=== PATIENT | female | born 1930 | race Caucasian/White ===

== ENCOUNTER 2017-06-08 07:02 | Inpatient (IN) ==
[2017-06-08] MEDS ORDERED: ZOFRAN IV ONE (07:05)
[2017-06-08] MEDS ORDERED: NS 1,000 ML IV ONE (07:05)
[2017-06-08] MEDS ORDERED: ZOSYN 4.5 GM in NS 100 ML IV SCH (07:45)
[2017-06-08 08:09] LABS: MANUAL DIFF NEEDED? NO
[2017-06-08 08:16] LABS: BASO% 0.5 % (0.0-0.8); EOS# 0.05 X1000 (0.0-0.7); EOS% 0.8 % (0.0-10.0); HEMATOCRIT 31.4 % (37.0-47.0); HEMOGLOBIN 10.2 g/dL (12.0-16.0); LYMPH# 0.98 X1000 (1.2-3.4); LYMPH% 16.6 % (20.5-51.1); MCH 29.6 PG (27-31); MCHC 32.5 g/dL (33-37); MONO# 0.81 X1000 (0.11-0.59); MONO% 13.7 % (1.7-9.3); MPV 11.3 FL (7.4-10.4); NEUT% 68.4 % (42.2-75.2); PLT 207 X1000 (130-400); RBC 3.45 XMIL (4.2-5.4)
[2017-06-08] MEDS ORDERED: TYLENOL PO PRN ×2 (08:19→08:41)
[2017-06-08] MEDS ORDERED: VENTOLIN HFA INH PRN ×3 (08:19→08:43)
[2017-06-08] MEDS ORDERED: LOVENOX SUBQ SCH (08:19)
[2017-06-08 08:30] LABS: AGAP 10; ALBUMIN 3.8 g/dL (3.5-5.0); ALKALINE PHOSPHATASE 61 U/L (32-104); AMYLASE 60 U/L (20-200); BUN 20 mg/dL (8-22); CALCIUM 9.8 mg/dL (8.8-10.2); CHLORIDE 94 mmol/L (98-107); COSMO 269; DIRECT BILIRUBIN < 0.20 mg/dL (0.00-0.20); GOT 22 U/L (10-30); GPT 12 U/L (10-36); LIPASE 38 U/L (13-60); POTASSIUM 3.7 mmol/L (3.5-5.1); SODIUM 133 mmol/L (136-145); TCO2 29 mmol/L (25-35); TOTAL PROTEIN 7.1 g/dL (6.3-8.3)
[2017-06-08] MEDS ORDERED: DIOVAN PO SCH (09:00)
[2017-06-08] MEDS: ZOFRAN IV PRN (10:20)
[2017-06-08] MEDS: ZOSYN 2.25 GM in NS 50 ML IV SCH ×2 (11:49→17:47)
[2017-06-08] MEDS: DIOVAN PO SCH (11:50)
[2017-06-08] MEDS: PROTONIX PO SCH ×2 (11:50→21:43)
[2017-06-08] MEDS: LOVENOX SUBQ SCH (11:50)
[2017-06-08] MEDS: SINGULAIR PO SCH (11:50)
[2017-06-08] MEDS: NS 1,000 ML IV SCH (14:30)
[2017-06-08] MEDS: ADVAIR 250/50 DISKUS INH SCH (19:43)
[2017-06-08] MEDS: DESYREL PO SCH (21:43)
[2017-06-09] MEDS: ZOSYN 2.25 GM in NS 50 ML IV SCH ×5 (03:02→20:48)
[2017-06-09] MEDS: NS 1,000 ML IV SCH ×4 (03:02→18:49)
[2017-06-09 06:28] LABS: CALCIUM 8.4 mg/dL (8.8-10.2); POTASSIUM 3.8 mmol/L (3.5-5.1)
--- NOTE | 2017-06-09 07:16 | Diag Imaging Result Doc PS360 ---
EXAM: CHEST-PORTABLE HISTORY: HTN TECHNIQUE: Erect AP portable at 0530 COMMENT: There is some improvement in the platelike atelectasis over the left base compared to the previous study of 05/29/2016. Otherwise the appearance of the chest has not changed significantly. There is a skin fold over the right upper chest simulating a pneumothorax. There is no pneumothorax. IMPRESSION: No evidence of acute disease. Electronically signed by Bernardino Silverio 06/09/2017 7:14 AM
[2017-06-09] MEDS: ADVAIR 250/50 DISKUS INH SCH ×2 (08:02→19:25)
[2017-06-09 10:07] LABS: CALCIUM 8.5 mg/dL (8.8-10.2); POTASSIUM 3.6 mmol/L (3.5-5.1)
[2017-06-09] MEDS: SINGULAIR PO SCH (10:11)
[2017-06-09] MEDS: PROTONIX PO SCH ×2 (10:11→20:49)
[2017-06-09] MEDS: LOVENOX SUBQ SCH (10:12)
[2017-06-09] MEDS: DIOVAN PO SCH (10:12)
[2017-06-09] MEDS: DESYREL PO SCH ×2 (20:48→20:51)
[2017-06-10] MEDS: NS 1,000 ML IV SCH ×2 (03:12→08:51)
[2017-06-10] MEDS: ZOSYN 2.25 GM in NS 50 ML IV SCH ×4 (03:12→20:02)
[2017-06-10] MEDS: ADVAIR 250/50 DISKUS INH SCH ×2 (07:51→19:24)
[2017-06-10] MEDS ORDERED: PHENERGAN IV PRN (08:33)
[2017-06-10] MEDS ORDERED: SODIUM CHLORIDE 0.9% INJ PRN (08:33)
[2017-06-10] MEDS: PROTONIX PO SCH ×2 (08:38→20:02)
[2017-06-10] MEDS: SINGULAIR PO SCH (08:38)
[2017-06-10] MEDS: DIOVAN PO SCH (08:38)
[2017-06-10] MEDS: LOVENOX SUBQ SCH (08:39)
--- NOTE | 2017-06-10 09:28 | Diag Imaging Result Doc PS360 ---
CT ABDOMEN/PELVIS W/O CONTRAST - 06/10/2017 INDICATION: Abdominal pain/ intractable diarrhea TECHNIQUE: A CT dose reduction protocol was used. COMPARISON: 05/29/2016 FINDINGS: There is a large hiatal hernia stable from prior. There is some multifocal linear atelectasis in the lung bases. Trace left pleural effusion. Stable small cyst in the liver. Stable cholecystectomy changes. There are numerous renal cysts. The largest cyst at the lower pole of the right kidney has enlarged somewhat since prior. This now measures about 8 x 5 cm. No radiodense renal stones. No hydronephrosis or hydroureter. Stable extensive vascular disease of the aorta and its branches without aneurysm formation. Stable small fat-containing ventral hernia to the right of the umbilicus. There is some soft tissue gas at the anterior left pelvic body wall. Correlate for injection sites. The small bowel demonstrates a lot of air-fluid levels. The colon is also filled with liquid stool and some small air-fluid levels. No abnormal bowel dilation. Stable extensive diverticulosis of the distal colon. There are also a couple of diverticula of the distal small bowel. Urinary bladder, uterus, and rectum are normal. There are moderate degenerative changes of the spine. No acute or suspicious bony lesion. IMPRESSION: 1. The small bowel and colon is filled with liquid stool consistent with diarrhea. The cause is not clear. 2. Diverticulosis of the small and large bowel. 3. Soft tissue gas at the anterior left pelvic body wall. Correlate with injection sites. 4. Other incidental findings described above. Electronically signed by Blue Polk 06/10/2017 9:26 AM
[2017-06-11] MEDS: ZOSYN 2.25 GM in NS 50 ML IV SCH (04:06)
[2017-06-11 06:10] LABS: MANUAL DIFF NEEDED? NO
[2017-06-11 06:21] LABS: BASO% 0.7 % (0.0-0.8); EOS# 0.13 X1000 (0.0-0.7); EOS% 2.8 % (0.0-10.0); HEMOGLOBIN 8.8 g/dL (12.0-16.0); LYMPH# 1.03 X1000 (1.2-3.4); LYMPH% 22.4 % (20.5-51.1); MCH 29.2 PG (27-31); MCHC 32.6 g/dL (33-37); MCV 89.7 FL (81-99); MPV 11.3 FL (7.4-10.4); NEUT% 61.1 % (42.2-75.2); PLT 150 X1000 (130-400); RBC 3.01 XMIL (4.2-5.4)
[2017-06-11 06:41] LABS: CALCIUM 7.8 mg/dL (8.8-10.2); POTASSIUM 3.7 mmol/L (3.5-5.1); TOTAL BILIRUBIN 0.36 mg/dL (0.20-1.00); TOTAL PROTEIN 5.4 g/dL (6.3-8.3)
[2017-06-11] MEDS: DESYREL PO SCH ×3 (06:54→21:56)
[2017-06-11] MEDS: LOVENOX SUBQ SCH (08:46)
[2017-06-11] MEDS: SINGULAIR PO SCH (08:47)
[2017-06-11] MEDS: PROTONIX PO SCH ×2 (08:47→21:55)
[2017-06-11] MEDS: DIOVAN PO SCH (08:47)
[2017-06-11] MEDS: ADVAIR 250/50 DISKUS INH SCH ×2 (08:50→19:24)
[2017-06-12] MEDS: ADVAIR 250/50 DISKUS INH SCH ×2 (07:30→19:20)
[2017-06-12] MEDS: LOVENOX SUBQ SCH (13:46)
[2017-06-12] MEDS: SINGULAIR PO SCH (13:46)
[2017-06-12] MEDS: DIOVAN PO SCH (13:46)
[2017-06-12] MEDS: PROTONIX PO SCH ×2 (13:46→20:31)
--- NOTE | 2017-06-12 14:12 | Diag Imaging Result Doc PS360 ---
ABDOMEN FLAT/UPRIGHT - 06/12/2017 INDICATION: Abdominal pain/ diarrhea TECHNIQUE: Two views COMPARISON: 05/26/2016 FINDINGS: Stable surgical clips in the right upper quadrant and right side of the pelvis. There is a nonobstructive bowel gas pattern. No free air or abdominal calcifications. IMPRESSION: No acute disease. Electronically signed by Blue Polk 06/12/2017 2:10 PM
[2017-06-12] MEDS: ZOFRAN IV PRN (19:01)
[2017-06-12] MEDS: DESYREL PO PRN (20:36)
[2017-06-13] MEDS: ADVAIR 250/50 DISKUS INH SCH ×2 (07:30→19:22)
[2017-06-13] MEDS ORDERED: DIPRIVAN 1% ONE (10:06)
[2017-06-13] MEDS: SINGULAIR PO SCH (16:44)
[2017-06-13] MEDS: PROTONIX PO SCH ×2 (16:44→21:04)
[2017-06-13] MEDS: LOVENOX SUBQ SCH (16:44)
[2017-06-13] MEDS: DIOVAN PO SCH (16:44)
[2017-06-13] MEDS: NS 1,000 ML IV SCH ×2 (18:39→21:05)
[2017-06-13] MEDS ORDERED: KLONOPIN PO SCH (21:00)
[2017-06-13] MEDS: PERIDEX MT SCH (21:05)
[2017-06-13] MEDS: DESYREL PO PRN (21:06)
[2017-06-14 05:52] LABS: MANUAL DIFF NEEDED? NO
[2017-06-14 06:02] LABS: BASO% 0.6 % (0.0-0.8); EOS# 0.01 X1000 (0.0-0.7); EOS% 0.2 % (0.0-10.0); HEMATOCRIT 25.6 % (37.0-47.0); HEMOGLOBIN 8.3 g/dL (12.0-16.0); LYMPH# 0.88 X1000 (1.2-3.4); LYMPH% 16.9 % (20.5-51.1); MCH 28.9 PG (27-31); MCHC 32.4 g/dL (33-37); MCV 89.2 FL (81-99); MONO# 0.76 X1000 (0.11-0.59); MONO% 14.6 % (1.7-9.3); MPV 11.6 FL (7.4-10.4); NEUT% 67.7 % (42.2-75.2); PLT 146 X1000 (130-400); RBC 2.87 XMIL (4.2-5.4)
[2017-06-14 06:15] LABS: ALBUMIN 2.7 g/dL (3.5-5.0); CALCIUM 7.9 mg/dL (8.8-10.2); POTASSIUM 2.7 mmol/L (3.5-5.1); TOTAL BILIRUBIN 0.44 mg/dL (0.20-1.00); TOTAL PROTEIN 5.5 g/dL (6.3-8.3)
[2017-06-14] MEDS: ADVAIR 250/50 DISKUS INH SCH (07:44)
[2017-06-14 09:20] VITALS: BP 134/87
[2017-06-14] MEDS: PROTONIX PO SCH (09:47)
[2017-06-14] MEDS: SINGULAIR PO SCH (09:47)
[2017-06-14] MEDS: DIOVAN PO SCH (09:48)
[2017-06-14] MEDS: LOVENOX SUBQ SCH (09:48)
[2017-06-14] MEDS: PERIDEX MT SCH (09:49)
[2017-06-15] MEDS ORDERED: KLOR-CON PO SCH (09:00)
== END 2017-06-14 12:07 | disposition home or self-care (01) ==
LOC: ED 07:02 → 4N 08:07
PROVIDERS: ADMIT Internal Medicine; ATTEND Internal Medicine

== ENCOUNTER 2019-11-11 10:17 | Inpatient (IN) ==
[2019-11-11 11:07] LABS: BASO# 0.02 X1000 (0.0-0.2); BASO% 0.2 % (0.0-0.8); EOS# 0.18 X1000 (0.0-0.7); EOS% 2.2 % (0.0-10.0); HEMATOCRIT 31.3 % (37.0-47.0); HEMOGLOBIN 9.8 g/dL (12.0-16.0); LYMPH# 1.01 X1000 (1.2-3.4); LYMPH% 12.4 % (20.5-51.1); MCH 28.4 PG (27-31); MCHC 31.3 g/dL (33-37); MCV 90.7 FL (81-99); MONO# 0.83 X1000 (0.11-0.59); MONO% 10.2 % (1.7-9.3); MPV 10.8 FL (7.4-10.4); NEUT# 6.08 X1000 (1.4-6.5); PLT 223 X1000 (130-400); RBC 3.45 XMIL (4.2-5.4); RDW 13.8 % (11.5-14.5); WBC 8.12 X1000 (4.8-10.8)
[2019-11-11 11:29] LABS: ALB/GLOB RATIO 0.9; ALBUMIN 3.2 g/dL (3.5-5.0); CALCIUM 9.3 mg/dL (8.8-10.2); CREATININE 1.7 mg/dL (0.5-0.9); POTASSIUM 3.8 mmol/L (3.5-5.1); TOTAL BILIRUBIN 0.84 mg/dL (0.20-1.00); TOTAL PROTEIN 6.9 g/dL (6.3-8.3)
--- NOTE | 2019-11-11 12:41 | EKG Report ---
Test Performed on : 11/11/2019 10:46:44 AM Test Reason : CP Blood Pressure : / mmHG Vent. Rate : 083 BPM Atrial Rate : 083 BPM P-R Int : 168 ms QRS Dur : 136 ms QT Int : 382 ms P-R-T Axes : 042 -53 093 degrees QTc Int : 448 ms Normal sinus rhythm. Left axis deviation Left ventricular hypertrophy with QRS widening and repolarization abnormality Cannot rule out Septal infarct (cited on or before 17-APR-2018) Abnormal ECG When compared with ECG of 22-APR-2018 16:14, premature ventricular complexes. are no longer present premature supraventricular complexes. are no longer present Unconfirmed Result
[2019-11-11] MEDS ORDERED: MORPHINE IV ONE (14:31)
[2019-11-11] MEDS ORDERED: NS 1,000 ML IV ONE ×3 (14:31→15:37)
[2019-11-11] MEDS ORDERED: ZOFRAN IV ONE (14:31)
[2019-11-11 15:11] LABS: BILIRUBIN URINE NEGATIVE (NEGATIVE); BLOOD URINE NEGATIVE (NEGATIVE); COLOR YELLOW; GLUCOSE URINE NEGATIVE (NEGATIVE); KETONE URINE NEGATIVE (NEGATIVE); LEUKOCYTES URINE NEGATIVE (NEGATIVE); NITRITE URINE NEGATIVE (NEGATIVE); PH URINE 6.5; PROTEIN URINE NEGATIVE (NEGATIVE); SP GRAVITY URINE 1.012; TURBIDITY URINE CLEAR (CLEAR); URINE SOURCE CLEAN CATCH; UROBILINOGEN URINE NORMAL (NORMAL)
[2019-11-11 15:13] LABS: UR EPITHELIAL CELLS <10 /HPF (<10); URINE BACTERIA NEGATIVE /HPF; URINE RBC <10 /HPF (<10); URINE WBC <10 /HPF (<10)
[2019-11-11] MEDS ORDERED: TYLENOL PO PRN ×2 (15:37→18:47)
[2019-11-11] MEDS ORDERED: ZOFRAN IV PRN (15:37)
--- NOTE | 2019-11-11 16:40 | Diag Imaging Result Doc PS360 ---
EXAM: CHEST-PORTABLE HISTORY: ABD PAIN TECHNIQUE: Single view COMPARISON: 04/22/2018 FINDINGS: The lungs are well expanded. The heart is not enlarged. The vessels are not distended. There are no infiltrates. No effusion identified. There is a small to moderate-sized hiatal hernia. IMPRESSION: Negative exam. Electronically signed by Hugo Le 11/11/2019 4:38 PM
[2019-11-11] MEDS ORDERED: VENTOLIN HFA INH PRN (17:40)
[2019-11-11] MEDS ORDERED: DESYREL PO PRN (18:48)
[2019-11-11] MEDS ORDERED: TUSSIONEX LIQUID PO PRN (18:51)
[2019-11-11] MEDS: PRILOSEC PO SCH (20:46)
[2019-11-11] MEDS: ADVAIR 250/50 DISKUS INH SCH (21:07)
[2019-11-11] MEDS: VENTOLIN HFA INH PRN (21:08)
--- NOTE | 2019-11-11 21:23 | EKG Report ---
Test Performed on : 11/11/2019 6:13:58 PM Test Reason : elevated heart rate Blood Pressure : / mmHG Vent. Rate : 116 BPM Atrial Rate : 117 BPM P-R Int : 150 ms QRS Dur : 128 ms QT Int : 342 ms P-R-T Axes : 037 -58 106 degrees QTc Int : 475 ms Sinus tachycardia. with occasional premature ventricular complexes. Left axis deviation Left ventricular hypertrophy with QRS widening and repolarization abnormality Cannot rule out Septal infarct , age undetermined Abnormal ECG Confirmed by Abrahan Escobar MD ([id number]) on 11/12/2019 4:35:28 PM
--- NOTE | 2019-11-11 22:19 | HISTORY AND PHYSICAL ---
PRIMARY CARE PHYSICIAN: Dr. Banrey Subramanian. CHIEF COMPLAINT: Intractable abdominal pain. HISTORY OF PRESENT ILLNESS: An 89-year-old, white female with a very complicated past medical history who presents for evaluation of above-mentioned symptoms. Pertinent history of present illness began approximately 2 weeks ago. At that time, patient states she began feeling poorly. She was, however, able to continue her daily activities. On Friday evening, the patient developed acute onset nausea, vomiting, and epigastric pain. The pain lasted into the day Friday. She denied fevers, chills, or diarrhea. Because of significant dehydration and persistent symptoms, the patient was seen in the emergency department for further evaluation and management. Laboratory data returned essentially within normal limits. CT scan revealed no evidence of acute disease. The patient was discharged home after receiving IV fluids. On Friday, the patient had an episode of diarrhea, but overall states she felt improved from the day prior. This morning at approximately 6 a.m., the patient awoke and drank a cup of coffee and a cup of orange juice. At approximately 8:30, the patient developed intractable abdominal pain. She described the pain as 10/10. She had associated nausea, but no vomiting. The patient contacted her daughter secondary to the intractable pain. The patient was brought to the emergency department for further evaluation and management. The pain ultimately improved with time. Her episode lasted approximately 2 to 3 hours. Laboratory data was evaluated in the emergency department. Alkaline phosphatase and AST were noted to be significantly increased from Friday. In the setting of previous common bile duct stone on 2 separate occasions, patient will be admitted to the hospital for full evaluation and management. Of note, in 2015 and 2017, the patient developed symptomatic common bile duct stone. She was treated with ERCP intervention per Dr. Larsen. As described above, the patient describes current symptoms as very similar to her previous episodes. PAST MEDICAL HISTORY: 1. History of Bright's disease in 1963. 2. Chronic anemia. 3. History of appendectomy in 1961. 4. Asthma. 5. Choledocholithiasis status post ERCP in 2015 and 2017. 6. Cholelithiasis status post open cholecystectomy in the . 7. Congestive heart failure, diagnosed in 2018 with a systolic ejection fraction of 15 to 20 percent, followed. 8. Chronic cough secondary to asthma versus reflux versus congestive heart failure. 9. History of diverticulitis treated successfully with antibiotic intervention. 10. Reflux disease. 11. History of a hiatal hernia. 12. Hypertension. 13. Iron deficiency. 14. Osteoporosis. 15. History of an ovarian cyst rupture in 1962 status post right oophorectomy. 16. History of colonic polyps. 17. 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 In April 2018 and a renal mass was identified. Serial CT scan evaluations have been performed by Dr. Babin, but no intervention has been pursued. 18. Pulmonary nodules. Diagnosed in 2016. 19. History of nephrolithiasis. 20. Vitamin B12 deficiency. CURRENT MEDICATIONS: 1. Advair 250/50 one puff twice daily. 2. Vitamin B12 1000 mcg IM monthly. 3. Lasix 80 mg daily. 4. Metoprolol ER 25 mg daily. 5. Omeprazole 40 mg daily. 6. Potassium chloride 8 mEq daily. 7. ProAir HFA 1 to 2 puffs every 4 to 6 hours as needed. 8. Singulair 10 mg daily as needed. 9. Tussionex as needed. ALLERGIES: Patient states she is allergic to Demerol, which causes shortness of breath; iron, which causes nausea and vomiting; and Protonix, which causes dizziness. SOCIAL HISTORY: The patient averaged 3 cigarettes per day for 20 years. She stopped in 1974. She occasionally uses alcohol. She denies illicit drug use. She is a retired nurse. She enjoys [employer], [employer], and [employer]. She is unable to exercise routinely. FAMILY HISTORY: Patient's father passed at age 76 secondary to complications of a stroke. He had a history of laryngeal cancer. Patient's mother passed at age 97 secondary to "old age." REVIEW OF SYSTEMS: A 12 point review of systems was performed. Pertinent positives and negatives are noted history present illness. PHYSICAL EXAMINATION: VITAL SIGNS: Temperature 98.3 degrees, heart rate 50, respirations 18, blood pressure 123/80. GENERAL: Elderly. No acute distress. HEENT: Normocephalic, atraumatic. Pupils equal, round, reactive to light. Extraocular muscles intact. Sclerae anicteric. Clute conjunctivae. Oral and nasopharynx clear without exudate. NECK: Supple. No lymphadenopathy. No thyromegaly. No bruits auscultated. CARDIOVASCULAR: Regular rate and rhythm. No significant murmurs, rubs, or gallops. PULMONARY: Clear to auscultation bilaterally. ABDOMEN: Soft, tenderness in the epigastric region with guarding, but no rebound. Positive bowel sounds. EXTREMITIES: Moves all extremities well. No significant clubbing, cyanosis, or edema. NEUROLOGIC: Cranial nerves 2-12 grossly intact. Motor and sensory grossly intact. PSYCHOLOGIC EXAMINATION: Is appropriate. LABORATORY DATA: White blood cell count 8.12, hemoglobin 9.8, hematocrit 31.3, platelet count 223,000. Sodium 138, potassium 3.8, chloride 100, bicarb 26, BUN 23, creatinine 1.7, glucose 96, calcium 9.3, total bilirubin 0.84, total protein 6.9, albumin 3.2, alkaline phosphatase 244, AST 56, ALT 23, proBNP 1521, amylase 50, lipase 39, urinalysis returned negative. Chest x-ray revealed a negative examination. ASSESSMENT AND PLAN: An 89-year-old, white female with a complicated past medical history, presents for evaluation of intractable abdominal pain. With a history of 2 episodes of common bile duct stone requiring endoscopic retrograde cholangiopancreatography intervention, elevated alkaline phosphatase, and elevated liver enzymes, I am most concerned this represents a recurrence. The patient will be admitted to the hospital for full evaluation and management of this condition. 1. Admit to General Medicine. 2. Intractable abdominal pain - As above, highest on the differential is that of an obstructing common bile duct stone. Patient has had 2 previous episodes as described above. I have discussed case with Dr. Edmonds. We will place patient NPO. We will plan endoscopic retrograde cholangiopancreatography intervention tomorrow. Further plans will be made depending on the endoscopic retrograde cholangiopancreatography findings. We will continue routine omeprazole therapy. We will encourage aspiration precautions. 3. Intractable nausea and vomiting - This is likely secondary to her acute illness. We will treat the patient with as-needed antiemetic agents. We will follow this. 4. Systolic congestive heart failure - This certainly compounds her current condition. We will continue her optimized medical management. We will monitor her volume status very closely. 5. Chronic kidney disease - Patient's creatinine is slightly elevated, but approximately her baseline. We will remain aware. We will continue her optimized medical regimen. 6. Anemia - Patient has longstanding disease. Hemoglobin and hematocrit are 9.8 in 31.3. We will remain aware. 7. Bronchospasm/cough - We will continue patient on Advair and as needed albuterol. We will encourage aspiration precautions. 8. Reflux disease with associated hiatal hernia - We will continue patient on omeprazole therapy. 9. Hypertension - We will continue patient's home medications. 10. Fluid, electrolytes, nutrition. We will monitor electrolytes. Saline lock IV. NPO after midnight. 11. Prophylaxis. The patient will be placed on sequential compression devices. cc: Barney Subramanian MD
[2019-11-11] MEDS: TOPROL XL PO SCH (23:05)
[2019-11-12 05:21] LABS: BASO# 0.02 X1000 (0.0-0.2); BASO% 0.3 % (0.0-0.8); EOS# 0.17 X1000 (0.0-0.7); EOS% 2.5 % (0.0-10.0); HEMATOCRIT 28.3 % (37.0-47.0); HEMOGLOBIN 8.7 g/dL (12.0-16.0); IMM GRAN# 0.02 X1000 (0.0-0.04); IMM GRAN% 0.3 % (0.0-0.5); LYMPH# 0.84 X1000 (1.2-3.4); LYMPH% 12.6 % (20.5-51.1); MCHC 30.7 g/dL (33-37); MONO# 0.78 X1000 (0.11-0.59); MONO% 11.7 % (1.7-9.3); MPV 10.8 FL (7.4-10.4); NEUT# 4.86 X1000 (1.4-6.5); NEUT% 72.6 % (42.2-75.2); PLT 204 X1000 (130-400); RBC 3.11 XMIL (4.2-5.4); RDW 13.6 % (11.5-14.5); WBC 6.69 X1000 (4.8-10.8)
[2019-11-12 05:32] LABS: INR 1.16
[2019-11-12 05:33] LABS: PTT 40.3 Seconds (22.3-41.8)
[2019-11-12 05:44] LABS: ALB/GLOB RATIO 0.9; ALBUMIN 2.9 g/dL (3.5-5.0); CALCIUM 8.8 mg/dL (8.8-10.2); CREATININE 1.6 mg/dL (0.5-0.9); POTASSIUM 3.6 mmol/L (3.5-5.1); TOTAL BILIRUBIN 1.01 mg/dL (0.20-1.00); TOTAL PROTEIN 6.1 g/dL (6.3-8.3)
[2019-11-12] MEDS: PRILOSEC PO SCH (06:07)
[2019-11-12] MEDS: KLOR-CON PO SCH (08:10)
[2019-11-12] MEDS: SINGULAIR PO SCH (08:10)
[2019-11-12] MEDS: LASIX PO SCH (08:10)
[2019-11-12] MEDS: TOPROL XL PO SCH (08:10)
[2019-11-12] MEDS: COZAAR PO SCH (08:10)
[2019-11-12] MEDS ORDERED: DIPRIVAN 1% 500 MG/50 ML BOTTLE ONE (10:57)
[2019-11-12] MEDS ORDERED: KETAMINE ONE (10:59)
[2019-11-12] MEDS ORDERED: XYLOCAINE-MPF 2% ONE (11:14)
[2019-11-12] MEDS ORDERED: VERSED ONE (11:16)
--- NOTE | 2019-11-12 11:50 | ENDOSCOPY OPERATIVE NOTE ---
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 PROCEDURE PERFORMED: ERCP with removal of calculus/calculi MEDICATIONS: Per Anesthesia CONSENT: The patient understands the risks and benefits of the procedure and understands that these r isks include, but are not limited to: sedation, allergic reaction, infection, perforation and/or bleeding. Alternative means of evaluation and treatment include, among others: physical exam, x-rays, and/or surgical intervention. The patient elects to proceed with this endoscopic procedure. HISTORY AND PHYSICAL: 11/12/2019 DESCRIPTION OF PROCEDURE: During intra-op preparation period all mechanical and medical equipment was checked for proper function. Hand hygiene and appropriate measures for infection prevention was taken. After the risks, benefits and alternatives of the procedure were thoroughly explained, Informed was verified, confirmed and timeout was successfully executed by the treatment team. With the patient in left semi-prone position, medications were admini stered intravenously.The [id number] ([id number]) was passed from the mouth into the esophagus and further advanc ed from the esophagus into the stomach. From stomach scope was directed to the second portion of the duodenum. M ajor papilla was aligned with the duodenoscope. The scope position was confirmed fluoroscopically. Rest of the finding s/therapeutics are given below. The scope was then completely withdrawn from the patient and the procedure completed. Th e pulse, BP, and O2 saturation were monitored and documented by the physician and the nursing staff throughout the ent arden procedure. The patient was cared for as planned according to standard protocol. The patient was then discharged to [facility] in stable condition and with appropriate post procedure care. ERCP: A machine biller film prior to endoscope insertion appeared normal. The Major Papilla was located in t he second portion of the duodenum. There was evidence of prior sphincterotomy. Bile duct cannulation was attempted u sing the cannulatome with guidewire. Cannulation of the bile duct was performed with ease. Deep cannulation was successfully achieved. A cholangiogram releaved there was a dilation of the CBD. There was a genu or very phil p turn in the mid CBD, baloon traverses the CBD easily. A stone extraction was attempted using a stone extraction bal loon. The bile duct was swept three times. Sludge was removed from the bile duct. ADVERSE EVENT: There were no complications. IMPRESSIONS: RECOMMENDATIONS: 1. Start Nikolai 2. Repeat liver function test in 1 day(s) 3. Disposition 4. Return to floor when standard parameters are met 5. Resume regular diet REPEAT EXAM: Han Edmonds MD eSigned: Han Edmonds MD 11/12/2019 11:49 AM cc: Barney Subramanian MD PATIENT NAME: Jane Adan MR#: [id number]
--- NOTE | 2019-11-12 11:56 | Diag Imaging Result Doc PS360 ---
EXAM: ERCP-BILIARY AND PANCREATIC 11/12/2019 HISTORY: abd pain, hx CBD stones TECHNIQUE: One image, 48.7 mGy, 5.7 minutes fluoroscopy time. COMMENT: There is biliary dilatation including the intrahepatic ducts. A balloon was apparently passed into the right hepatic duct. No contrast is seen in the duodenum. The possibility of filling defects in the common bile duct and obstruction of the distal common bile duct cannot be excluded on this one image. IMPRESSION: Biliary dilatation. Electronically signed by Bernardino Silverio 11/12/2019 11:54 AM
[2019-11-12] MEDS: DILAUDID ONE ×2 (12:18→12:30)
[2019-11-12] MEDS: MORPHINE IV PRN ×2 (14:31→14:57)
[2019-11-12] MEDS ORDERED: SODIUM CHLORIDE 0.9% INJ PRN (14:37)
[2019-11-12] MEDS ORDERED: PHENERGAN IV PRN (14:37)
[2019-11-12] MEDS ORDERED: D5 NS 1,000 ML IV SCH ×2 (15:00→19:03)
--- NOTE | 2019-11-12 15:16 | Diag Imaging Result Doc PS360 ---
EXAM: KUB ABDOMEN 11/12/2019 HISTORY: abd pain TECHNIQUE: KUB COMMENT: The patient is rotated to the left. There is some residual contrast in a dilated common hepatic and common bile duct. No visualized contrast is present in the bowel. There is no evidence of bowel obstruction organomegaly or mass otherwise. IMPRESSION: Retained contrast medium in the biliary tract. Electronically signed by Bernardino Silverio 11/12/2019 3:13 PM
[2019-11-12 15:33] LABS: AMYLASE 54 U/L (20-200); LIPASE 39 U/L (13-60)
[2019-11-12] MEDS: ADVAIR 250/50 DISKUS INH SCH ×2 (15:44→19:36)
--- NOTE | 2019-11-12 17:10 | GASTROENTEROLOGY CONSULTATION ---
DATE: 11/12/2019 REASON FOR CONSULTATION: Abdominal pain. HISTORY OF PRESENT ILLNESS: This is an 89-year-old female who reports onset of symptoms about 2 weeks ago. At that time she had developed abdominal pain, nausea, vomiting. It lasted for several days. She had denied fever or chills. It improved but then returned several days later. She had episode of diarrhea related. No reported fever or chills. She had episodes of nausea at that time. She came into the emergency room for evaluation. She was found to have elevated alkaline phosphatase and mildly elevated AST. She has a history of common bile duct stones and has had [address] Larsen in 2016 and 2018. Currently patient states her abdominal pain has improved. She did have some shortness of breath on admission, but that has improved also. She has O2 by nasal cannula and no reported nausea or vomiting today. She has been held n.p.o. for possible ERCP. PAST MEDICAL HISTORY: History of Bright's disease 1962. Chronic anemia. Asthma. Congestive heart failure. History of diverticulitis. GERD. Hypertension Osteoporosis. PAST SURGICAL HISTORY: Appendectomy. Cholecystectomy. 2 different ERCPs in 2015 and 2018. Colon resection. Right oophorectomy related to an ovarian cyst rupture. Left nephrectomy. ALLERGIES: Demerol causing decreased respirations. HOME MEDICATIONS: 1. Tylenol 650 mg every 4 hours as needed. 2. Albuterol 8.5 g as needed. 3. Xanax 0.25 every 6 hours as needed. 4. Lasix 40 mg every other day. 5. Losartan 25 mg daily. 6. Metoprolol 25 mg daily. 7. Singulair 10 mg daily/ 8. Omeprazole 40 mg daily. 9. Zofran 4 mg every 6 hours as needed. 10. Potassium 8 mEq every other day. 11. Trazodone 50 mg at night as needed. SOCIAL HISTORY: She stopped smoking in the 1970s. Occasional alcohol use. She is a retired nurse. REVIEW OF SYSTEMS: Per history of present illness. PHYSICAL EXAMINATION: Vital Signs: Temperature 98.2 degrees, pulse 70 respirations 18, blood pressure 125/65. General: Patient is awake and alert. No acute distress. HEENT: Normocephalic, atraumatic. Pupils equal, round, reactive to light. Sclerae nonicteric. Respiratory: Lung sounds clear bilaterally. She does have O2 by nasal cannula in place. Cardiovascular: Regular rate and rhythm. Abdomen: Soft at present time. She states she has nontender, abdominal pain has improved some. Positive bowel sounds. Extremities: No lower extremity edema noted. Neurological: Cranial nerves 2-12 grossly intact. Patient is awake and alert, oriented to person, place, and time. DIAGNOSTIC RESULTS: Laboratory: Hematology: WBC 6.69, hemoglobin 8.7, hematocrit 28.3, MCV 91.0 platelet 204,000. Coagulation: ProTime 15.0 INR 1.16 PTT 40.3. Chemistry: Sodium 138, potassium 3.6, chloride 100, CO2 29, BUN 19, creatinine 1.6 glucose 95, calcium 8.8, total bilirubin 1.01. AST 35, ALT 26, alkaline phosphatase 213. Amylase and lipase were normal. Abdominal pelvis CT scan showed a moderately large sliding type hiatal hernia. Mild cardiomegaly. Small fat containing ventral hernia. Severe diverticulosis. ASSESSMENT AND PLAN: 1. Abdominal pain. 2. Nausea, vomiting. 3. Elevated alkaline phosphatase mildly elevated AST. 4. History of choledocholithiasis status post endoscopic retrograde cholangiopancreatography in 2016 and 2018. 5. Anemia. PLAN: Continue symptomatic treatment and supportive care. The patient has had common bile duct stones with ERCPs in [address] Larsen. I will proceed with repeat ERCP for further evaluation. I have discussed the procedure along with benefits and risks with the patient. She wishes to proceed along with her family. Further plans to be made according to findings. I have discussed this case with Dr. Edmonds. ERCP will be scheduled for today. The patient continues to be NPO. Thank you for this consultation. Dictated by OCTAVIANO Jones for Han Edmonds MD cc: OCTAVIANO Barger MD Scott A. Matthews, MD
--- NOTE | 2019-11-12 21:04 | PROGRESS NOTE ---
DATE: 11/12/2019 SUBJECTIVE: Upon my arrival this morning, the patient states she rested reasonably well. The patient was taken for ERCP this morning. Per report, bile duct cannulation was performed with ease. Deep cannulation was successfully achieved. Cholangiogram revealed there was dilation of the common bile duct. There was a genu or very sharp turn in the mid CBD, balloon transverses the CBD easily. Sludge was removed from the bile duct. Upon return to her room, the patient was noted to have significant pain in the epigastric and right upper quadrant. This was associated with nausea and vomiting. Ultimately, the patient achieved improvement with morphine and Phenergan therapy. This evening, the patient is resting in bed. She is easily arousable. There has been no evidence of fevers, chills, shortness of breath, or chest discomfort. OBJECTIVE: T-max 100.1 degrees, heart rate 67 to 84, respirations 14 to 20, blood pressure 104 to 162/49 to 73. General: Elderly, in no acute distress. Cardiovascular: Regular rate and rhythm. No significant murmurs, rubs, or gallops. Pulmonary: Clear to auscultation bilaterally. Abdomen: Soft, tenderness in the epigastric region. Positive bowel sounds. Extremities: Moves all extremities well. No significant clubbing, cyanosis, or edema. Dermatologic: Evaluation reveals no evidence of rash. LABORATORY DATA: White blood cell count 6.69, hemoglobin 8.7, hematocrit 28.3, platelet count is 204,000. PT 15.0, INR is 1.16, PTT is 40.3, sodium 138, potassium 3.6, chloride 100, bicarb 29, BUN 19, creatinine 1.6, glucose 95, calcium 8.8, total bilirubin 0.01, total protein 6.1, albumin 2.9, alkaline phosphatase 213. AST 35, ALT 26. Amylase 54, lipase 39. ASSESSMENT AND PLAN: 1. Intractable abdominal pain-The patient's alkaline phosphatase and transaminases were noted to be elevated yesterday. She had 2 previous episodes of stones obstructing the common bile duct. Dr. Edmonds was consulted. The patient was taken for ERCP as described above. Post- procedurely, the patient was noted to have excruciating pain with associated nausea and vomiting. I suspect this may have represented spasm after her procedure. We will follow serial pancreatic enzymes to rule out pancreatitis. Flat and upright x-ray suggested no evidence of free air. For now, we will continue supportive care. I anticipate the patient may have passed a stone prior to her ERCP. 2. Intractable nausea and vomiting-We will continue as-needed antibiotic intervention. 3. Systolic congestive heart failure-The patient was given D5 normal saline in the postprocedural time. We will decrease fluids down to 50 mL an hour. We will follow this. 4. Chronic kidney disease-The patient's creatinine is at baseline. We will recheck levels in the morning. 5. Anemia-The patient's hemoglobin and hematocrit are reasonably stable. We will follow this. 6. Bronchospasm/cough-We will continue Advair and as-needed albuterol. 7. Reflux disease with associated hiatal hernia-We will continue omeprazole therapy. 8. Hypertension-We will continue patient's home medications. 9. Disposition-At this point, the patient continues to require retirement care in a hospital setting. We will plan discharge home once appropriate. cc: Barney Subramanian MD
[2019-11-12] MEDS: ZOSYN 3.375 GM in NS 50 ML IV SCH (22:49)
[2019-11-13] MEDS: ZOSYN 3.375 GM in NS 50 ML IV SCH ×4 (04:07→21:54)
[2019-11-13 05:54] LABS: BASO# 0.02 X1000 (0.0-0.2); BASO% 0.1 % (0.0-0.8); EOS# 0.01 X1000 (0.0-0.7); HEMATOCRIT 31.9 % (37.0-47.0); HEMOGLOBIN 9.8 g/dL (12.0-16.0); IMM GRAN# 0.08 X1000 (0.0-0.04); IMM GRAN% 0.3 % (0.0-0.5); LYMPH# 0.54 X1000 (1.2-3.4); LYMPH% 2.2 % (20.5-51.1); MCH 28.1 PG (27-31); MCHC 30.7 g/dL (33-37); MCV 91.4 FL (81-99); MONO# 1.34 X1000 (0.11-0.59); MONO% 5.4 % (1.7-9.3); MPV 11.9 FL (7.4-10.4); NEUT# 22.71 X1000 (1.4-6.5); PLT 155 X1000 (130-400); RBC 3.49 XMIL (4.2-5.4); RDW 14.1 % (11.5-14.5)
[2019-11-13] MEDS: PRILOSEC PO SCH (06:10)
[2019-11-13 06:47] LABS: ALB/GLOB RATIO 0.7; ALBUMIN 2.7 g/dL (3.5-5.0); CREATININE 2.2 mg/dL (0.5-0.9); POTASSIUM 3.3 mmol/L (3.5-5.1); TOTAL BILIRUBIN 3.7 mg/dL (0.20-1.00); TOTAL PROTEIN 6.4 g/dL (6.3-8.3)
[2019-11-13] MEDS: ADVAIR 250/50 DISKUS INH SCH ×2 (08:16→19:04)
[2019-11-13 08:17] LABS: BANDS 2 % (0-1); LYMPHS 3 % (21-51); MONO 3 % (1-9); SEGS 92 % (42-75)
[2019-11-13] MEDS: LASIX PO SCH (09:43)
[2019-11-13] MEDS: COZAAR PO SCH (09:43)
[2019-11-13] MEDS: KLOR-CON PO SCH (09:43)
[2019-11-13] MEDS: SINGULAIR PO SCH (09:43)
[2019-11-13] MEDS: XANAX PO PRN ×2 (12:30→21:54)
--- NOTE | 2019-11-13 15:19 | PROGRESS NOTE ---
DATE: 11/13/2019 SUBJECTIVE: Events overnight were reviewed. In summary, patient spiked a temperature to 102.5 at 8:08. Blood cultures were drawn. Zosyn therapy was initiated. The patient rested well overnight. This morning, patient states she is feeling much improved. Her abdominal discomfort has decreased. Her nausea has essentially resolved. She wishes to be discharged home today. OBJECTIVE: T-max 102.5 degrees, heart rate 65 to 110, respirations 16 to 25, blood pressure 105 to 126 over 55 to 65.General: Elderly, no acute distress. Cardiovascular: Regular rate and rhythm. No significant murmurs, rubs, or gallops. Pulmonary: Clear to auscultation bilaterally. Abdomen: Soft, nontender, nondistended. Positive bowel sounds. Extremities: Moves all extremities well. No significant clubbing, cyanosis, or edema. Dermatologic: Evaluation reveals no evidence of rash. LABORATORY DATA: White blood cell count 24.70, hemoglobin 9.8, hematocrit 31.9, platelet count 155,000. Sodium 140, potassium 3.3, chloride 101, bicarb 25, BUN 22, creatinine 2.2, glucose 155, calcium 9.0, total bilirubin 3.70, total protein 6.4, albumin 2.7, alkaline phosphatase 373, AST 124, ALT 79. ASSESSMENT AND PLAN: 1. Intractable abdominal pain-as described yesterday, this likely represented biliary obstruction. ERCP suggested sludge but no large stones. Postprocedure patient had intractable pain requiring morphine for alleviation. This morning patient's laboratory data is significantly worsened from yesterday, however clinically she demonstrates improvement. I suspect the elevation in her liver enzymes and white blood cell count are reactive from her ERCP. We will plan to recheck these in the morning. If she demonstrates improvement, we will consider discharge home. 2. Fevers-patient spiked a significant fever overnight. Blood cultures have been drawn. Once again, I suspect this is biliary in etiology. We will continue Zosyn therapy for now. I suspect the elevation in white blood cell count is a combination of demargination and underlying infection. 3. Leukocytosis-patient had a significant jump from yesterday. As above, I suspect this is a combination of infection and demargination. We will recheck this in the morning. 4. Intractable nausea and vomiting-patient has achieved improvement from yesterday. We will slowly advance diet. 5. Hyperbilirubinemia, transaminitis, and elevated alkaline phosphatase-I suspect this is secondary to her ERCP versus biliary spasms. We will recheck this in the a.m. We will remain aware this could represent cholangitis. 6. Systolic congestive heart failure-we will continue patient's home medications. We will follow this. 7. Chronic kidney disease-patient's creatinine increased from yesterday. I suggested continuing IV fluids, however patient is resistant. We will encourage oral hydration. 8. Anemia-patient's hemoglobin and hematocrit are stable. 9. Bronchospasm/cough-symptoms are controlled with Advair and as needed albuterol. We will encourage aspiration precautions. 10. Reflux disease-we will continue patient on omeprazole therapy. 11. Hypertension-blood pressure is controlled on her current regimen. 12. Disposition-at this point, patient continues to require correction care in a hospital setting. We will plan discharge home once appropriate. cc: Barney Subramanian MD
[2019-11-13] MEDS: MIRALAX PO SCH (16:04)
[2019-11-13] MEDS: VENTOLIN HFA INH PRN (19:04)
[2019-11-13] MEDS: TOPROL XL PO SCH (20:34)
--- NOTE | 2019-11-14 01:24 | GASTROENTEROLOGY PROGRESS NOTE ---
DATE: 11/13/2019 SUBJECTIVE: The patient is resting in bed. She is feeling better. She denies any nausea or vomiting. She denies any bowel movements today. She feels she is constipated. OBJECTIVE: Vital signs: Temperature is 97.5 degrees, pulse of 78, respiratory rate 16, blood pressure 118/60, saturating 97% on room air. T-max was 102.5 degrees last night around 8 p.m. General: Thinly built, lying in bed, in no acute distress. HEENT: Pale conjunctiva. Mild icterus. Pupils equal and reactive to light. Neck is supple. Abdomen: Discomfort in the periumbilical area. No rebound or guarding. Extremities: No cyanosis or clubbing. Neurologic- whatley, she is alert, awake, oriented to time, place and person. LABORATORY DATA: Hemoglobin and hematocrit are 9.8 and 31.9, white count of 24.7, platelet count of 155,000. Sodium 140, potassium 3.3, chloride 101, bicarbonate of 25, anion gap of 20. Anion gap of 14, BUN of 22, creatinine of 2.2, glucose of 155, calcium is 9, total bilirubin 3.7, AST 124, ALT 79, alkaline phosphatase 373, total protein is 6.4, albumin 2.7. DIAGNOSTIC DATA: I reviewed the ERCP report from yesterday from Dr. Edmonds, which showed sludge in the bile duct, which was removed with balloon sweep. No stent was placed. IMPRESSION AND PLAN: 1. Abdominal pain. 2. Choledocholithiasis, status post endoscopic retrograde cholangiopancreatography with removal of biliary sludge. 3. Anemia. 4. Constipation. 5. Nausea. 6. Gastroesophageal reflux disease. RECOMMENDATIONS: The patient's white count has worsened and her liver enzymes have gotten worse. This could be a sign of cholangitis. She is restarted on antibiotics. She will continue on Prilosec for GI prophylaxis. She is on IV pain control with morphine. We will keep her on MiraLAX once daily for constipation. She is on full liquid diet. She may need some IV fluids for gentle hydration. We will leave it to the discretion of the primary care team. We will follow along. The above plan of care was discussed with the patient and all questions answered. Please call with any further questions. cc: MD Barney Weston MD [facility]
[2019-11-14] MEDS: ZOSYN 3.375 GM in NS 50 ML IV SCH ×4 (05:14→21:47)
[2019-11-14] MEDS: PRILOSEC PO SCH (06:03)
[2019-11-14 06:28] LABS: BASO# 0.03 X1000 (0.0-0.2); BASO% 0.2 % (0.0-0.8); EOS# 0.17 X1000 (0.0-0.7); EOS% 0.9 % (0.0-10.0); HEMATOCRIT 27.3 % (37.0-47.0); HEMOGLOBIN 8.5 g/dL (12.0-16.0); IMM GRAN# 0.04 X1000 (0.0-0.04); IMM GRAN% 0.2 % (0.0-0.5); LYMPH# 1.03 X1000 (1.2-3.4); LYMPH% 5.2 % (20.5-51.1); MCH 27.9 PG (27-31); MCHC 31.1 g/dL (33-37); MCV 89.5 FL (81-99); MONO# 1.01 X1000 (0.11-0.59); MONO% 5.1 % (1.7-9.3); MPV 11.3 FL (7.4-10.4); NEUT# 17.49 X1000 (1.4-6.5); NEUT% 88.4 % (42.2-75.2); PLT 137 X1000 (130-400); RBC 3.05 XMIL (4.2-5.4); RDW 13.9 % (11.5-14.5); WBC 19.77 X1000 (4.8-10.8)
[2019-11-14 06:32] LABS: ALBUMIN 2.8 g/dL (3.5-5.0); CALCIUM 8.4 mg/dL (8.8-10.2); CREATININE 2.2 mg/dL (0.5-0.9); POTASSIUM 3.1 mmol/L (3.5-5.1); TOTAL BILIRUBIN 1.08 mg/dL (0.20-1.00); TOTAL PROTEIN 5.7 g/dL (6.3-8.3)
[2019-11-14] MEDS: ADVAIR 250/50 DISKUS INH SCH ×2 (07:36→20:16)
[2019-11-14] MEDS: TOPROL XL PO SCH (09:04)
[2019-11-14] MEDS: SINGULAIR PO SCH (09:04)
[2019-11-14] MEDS: COZAAR PO SCH (09:04)
[2019-11-14] MEDS: LASIX PO SCH (09:04)
[2019-11-14] MEDS: MIRALAX PO SCH ×3 (09:04→21:48)
[2019-11-14] MEDS: KLOR-CON PO SCH (09:06)
[2019-11-14] MEDS ORDERED: KLOR-CON PO ONE (10:39)
[2019-11-14] MEDS: XANAX PO PRN ×2 (11:09→22:04)
--- NOTE | 2019-11-14 13:19 | PROGRESS NOTE ---
DATE: 11/14/2019 SUBJECTIVE: Over the course of the last 24 hours, the patient has demonstrated improvement in her overall condition. She has not had a repeat fever. Her p.o. intake has improved. Pain is well controlled. She denies nausea, vomiting, shortness of breath, or chest discomfort. OBJECTIVE: Vital Signs: T-max 97.9, heart rate 73 to 94, respirations 15 to 18, blood pressure 108 to 122/61 to 75. General: No acute distress. Cardiovascular: Regular rate and rhythm. No significant murmurs, rubs, or gallops. Pulmonary: Clear to auscultation bilaterally. Abdomen: Soft, nontender, nondistended. Positive bowel sounds. Extremities: Moves all extremities well. No significant clubbing, cyanosis, or edema. Dermatologic: No evidence of rash. LABORATORY DATA: White blood cell count 19.77, hemoglobin 8.5, hematocrit 27.3, platelet count 137,000. Sodium 138, potassium 3.1, chloride 98, bicarb 28, BUN 24, creatinine 2.2, glucose 104, calcium 8.4. Total bilirubin 1.08, total protein 5.7, albumin 2.8, alkaline phosphatase 251, AST 53, ALT 56. ASSESSMENT AND PLAN: 1. Intractable abdominal pain. This likely was secondary to biliary obstruction. Endoscopic retrograde cholangiopancreatography suggested sludge, but no large stones. Postprocedurally, the patient had intractable pain, requiring morphine for alleviation. This likely was secondary to biliary spasms. At present time, symptoms are controlled. Transaminases and alkaline phosphatase are trending downwards. We will continue to slowly advance diet as tolerated. 2. Fevers. The patient had a significant spike after her endoscopic retrograde cholangiopancreatography. This likely represented a transient bacteremia associated with a cholangitis. The patient is currently being treated with Zosyn therapy. Blood cultures thus far are negative. White blood cell count is trending downwards. For now, we will continue her current regimen. 3. Leukocytosis. This remains significant, although trending downwards. At this point, we will continue our current regimen. 4. Intractable nausea and vomiting. The patient has achieved resolution. We will continue antiemetic agents as needed. 5. Hyperbilirubinemia, transaminitis, and elevated alkaline phosphatase. Labs are trending downwards. We will remain aware. 6. Systolic congestive heart failure. We will continue the patient on home medications. She is euvolemic. 7. Chronic kidney disease. The patient's creatinine remains slightly above her baseline. We will encourage oral intake. 8. Anemia. The patient's hemoglobin and hematocrit decreased slightly from yesterday. We will continue to follow this. We will recheck labs in the morning. She has no evidence of active bleeding. 9. Bronchospasm/cough. Symptoms are controlled with Advair and as needed albuterol. 10. Reflux disease. We will continue omeprazole therapy. 11. Hypertension. Blood pressure is controlled on her current regimen. 12. Deep venous thrombosis prophylaxis. With a decrease in her hemoglobin and hematocrit, I am hesitant to start Lovenox therapy. She is intermittently using her sequential compression devices. We will encourage ambulation. DISCHARGE CONDITION: At this point, the patient continues to require care home care in a hospital setting. We will plan discharge home once appropriate. cc: Barney Subramanian MD
[2019-11-14] MEDS: ACTIGALL PO SCH ×2 (14:46→21:47)
--- NOTE | 2019-11-14 20:07 | GASTROENTEROLOGY PROGRESS NOTE ---
DATE: 11/14/2019 SUBJECTIVE: Patient resting in bed. Her daughter is present at bedside. Patient is feeling better. She denies fever, rigors or chills. She is starting to eat. She has not moved her bowels yet. OBJECTIVE: Vital signs: Temperature 97.4 degrees, pulse of 81, respiratory 16, blood pressure 118/75, saturating 96% on room air. Body weight of 145 pounds. BMI 27.4. General: Ms. Adan is moderately nourished lying in bed, in no acute distress. HEENT: Pale conjunctiva. No icterus. Pupils equal, react to light. Neck: Supple. Abdomen: Discomfort in the epigastrium. No rebound. Extremities: No cyanosis, clubbing. Neurologic: She is alert, awake, oriented. LABS: Hemoglobin and hematocrit is 8.5 and 27.3, white count of 19.7, platelet count of 137,000. Sodium 138, potassium 3.1, chloride 98, bicarb 20, anion gap 12, BUN of 24, creatinine 2.2, glucose 104. Calcium is 8.4, total bilirubin is 1.08. AST 53, ALT 56, alkaline phosphatase 251, total protein 5.7, albumin of 2.8. Blood culture x2 were drawn on 11/12/2019. So far they have been pending. IMAGING: Abdominal x-ray done on 11/12 showed retained contrast media in the biliary tract. IMPRESSION AND PLAN: 1. Abdominal pain, which is improved. 2. Choledocholithiasis status post endoscopic retrograde cholangiopancreatography with removal of biliary sludge by Dr. Edmonds on Friday11/12/2019. 3. Anemia. 4. Constipation. 5. Nausea, which is improving. 6. Reflux disease. RECOMMENDATIONS: The patient has not had a bowel movement yet. So we will increase the MiraLAX to twice daily. She will continue on antibiotics. She is on Prilosec for gastrointestinal prophylaxis. She is on pain control with IV morphine. She is starting to eat. We can hopefully advance her diet tomorrow. She also continues on Ursodiol 300 mg p.o. b.i.d. Continue watch her blood counts and may need to start on iron supplementation and multivitamin supplementation per the primary care team. The above plan of care was discussed with the patient and all questions were answered. Please call us with any further questions. The patient will follow up with Dr. Larsen. In 3 weeks of discharge. cc: MD Barney Weston MD
[2019-11-15] MEDS: ZOSYN 3.375 GM in NS 50 ML IV SCH (04:48)
[2019-11-15 05:56] LABS: BASO# 0.05 X1000 (0.0-0.2); BASO% 0.4 % (0.0-0.8); EOS# 0.32 X1000 (0.0-0.7); EOS% 2.7 % (0.0-10.0); HEMATOCRIT 27.9 % (37.0-47.0); HEMOGLOBIN 8.8 g/dL (12.0-16.0); IMM GRAN# 0.02 X1000 (0.0-0.04); IMM GRAN% 0.2 % (0.0-0.5); LYMPH# 0.89 X1000 (1.2-3.4); LYMPH% 7.6 % (20.5-51.1); MCH 28.1 PG (27-31); MCHC 31.5 g/dL (33-37); MCV 89.1 FL (81-99); MONO# 0.78 X1000 (0.11-0.59); MONO% 6.7 % (1.7-9.3); MPV 11.7 FL (7.4-10.4); NEUT# 9.62 X1000 (1.4-6.5); NEUT% 82.4 % (42.2-75.2); PLT 152 X1000 (130-400); RBC 3.13 XMIL (4.2-5.4); WBC 11.68 X1000 (4.8-10.8)
[2019-11-15] MEDS: PRILOSEC PO SCH ×2 (05:56→06:02)
[2019-11-15 06:20] LABS: ALB/GLOB RATIO 0.8; ALBUMIN 2.8 g/dL (3.5-5.0); CALCIUM 8.4 mg/dL (8.8-10.2); CREATININE 1.9 mg/dL (0.5-0.9); TOTAL BILIRUBIN 0.72 mg/dL (0.20-1.00); TOTAL PROTEIN 6.1 g/dL (6.3-8.3)
[2019-11-15] MEDS ORDERED: KLOR-CON PO ONE (07:06)
[2019-11-15] MEDS: ADVAIR 250/50 DISKUS INH SCH (07:42)
[2019-11-15 08:09] VITALS: BP 130/84
[2019-11-15] MEDS ORDERED: MAGNESIUM SULFATE 2 GM/S.W.I. 2 GM/50 ML IVPB IV ONE (08:14)
[2019-11-15] MEDS: LASIX PO SCH (09:16)
[2019-11-15] MEDS: COZAAR PO SCH (09:16)
[2019-11-15] MEDS: SINGULAIR PO SCH (09:16)
[2019-11-15] MEDS: TOPROL XL PO SCH (09:16)
[2019-11-15] MEDS: ACTIGALL PO SCH (09:25)
[2019-11-15] MEDS: MIRALAX PO SCH (10:53)
[2019-11-15] MEDS: KLOR-CON PO SCH (10:54)
--- NOTE | 2019-11-16 20:50 | DISCHARGE SUMMARY ---
ADMISSION DATE: 11/13/2019 DISCHARGE DATE: 11/15/2019 ADMISSION DIAGNOSIS: Intractable abdominal pain. DISCHARGE DIAGNOSIS: 1. Intractable abdominal pain likely secondary to biliary obstruction, resolved. 2. Fevers after ERCP, likely secondary to transient bacteremia versus cholangitis. 3. Leukocytosis diagnosed after ERCP, trending downwards. 4. Intractable nausea and vomiting, resolved. 5. Hyperbilirubinemia, transaminitis, elevated alkaline phosphatase, improving. 6. Systolic congestive heart failure, present on arrival. Chronic kidney disease, present on arrival. 7. Anemia, present on arrival number. 8. Bronchospasm/cough, present on arrival. 9. Reflux disease, present on arrival. 10. Hypertension, present on arrival. CONSULTATIONS: Dr. Edmonds with Gastroenterology was consulted for further evaluation and management of presumed biliary obstruction PROCEDURES: An ERCP was performed on 11/12/2019, which revealed dilation of the common bile duct, a genu or very sharp turn in the mid CBD, and removal of sludge from the bile duct with balloon extraction. HISTORY AND PHYSICAL EXAMINATION: See admit note. PHYSICAL EXAMINATION PRIOR TO DISCHARGE: Temperature 98 degrees, heart rate 69, respirations 16, blood pressure is 130/84. General: Elderly, no acute distress. Cardiovascular: Regular rate and rhythm. No significant murmurs, rubs, or gallops. Pulmonary: Clear to auscultation bilaterally. Abdomen: Soft, nontender, nondistended. Positive bowel sounds. Extremities: Moves all extremities well. No significant clubbing, cyanosis, or edema. Dermatologic: Evaluation reveals no evidence of rash. LABORATORY DATA: Prior to discharge. White blood cell count 11.68, hemoglobin 8.8, hematocrit 27.9, platelet count 152,000. Sodium 139, potassium 3.0 chloride 100, bicarb 24, BUN 19, creatinine 1.9 glucose 132, calcium 8.4, magnesium 1.0. Total bilirubin 0.72, total protein 6.1, albumin 2.8, alkaline phosphatase 222, AST 24, ALT 42. HOSPITAL COURSE: Patient was admitted as per history and physical examination. Hospital course per condition is as follows. ASSESSMENT AND PLAN: 1. Intractable abdominal - upon admission patient found to have intractable abdominal pain very similar to her previous episodes of biliary obstruction. Laboratory data was consistent with this finding. Dr. Edmonds was consulted. Patient was taken for ERCP as described. Biliary sludge and a sharp turn in the common bile duct were identified. postprocedure, patient developed intractable abdominal discomfort. This required IV narcotic pain medication to achieve adequate control of pain. Ultimately, with time, symptoms resolved. At time of discharge, abdominal discomfort had completely resolved. Patient will be discharged home with the addition of Nikolai with anticipation this may decrease in amount of sludge passing through her common bile duct. 2. Fevers - this was diagnosed soon after ERCP. As above, this likely represented transient bacteremia versus cholangitis. Patient was treated with Zosyn while hospitalized. Patient will be discharged home with 7 additional days of Augmentin therapy. We will continue to follow cultures. 3. Leukocytosis - after ERCP, patient's white blood cell count spiked considerably. With IV Zosyn and time, this trended downward. She is approaching normal at time of discharge. 4. Intractable nausea, vomiting - with antiemetic agents and treatment of her biliary obstruction, she achieved improvement. 5. Hyperbilirubinemia, transaminitis, and elevated alkaline phosphatase - the patient was diagnosed with modest elevation prior to ERCP. After ERCP, numbers increased considerably. At time of discharge, numbers were trending downwards. Symptoms were improving. Systolic congestive heart failure - patient was continued on her home medical regimen while hospitalized. She remained euvolemic. 6. Chronic kidney disease - the patient's creatinine was noted to be slightly above her baseline while hospitalized. She remains asymptomatic. We will plan to recheck this as an outpatient. 7. Anemia. The patient's hemoglobin and hematocrit remained slightly low while hospitalized but reasonably stable. We will follow this as an outpatient. She had no evidence of blood loss. 8. Bronchospasm/cough - patient was continued on Advair as needed and as needed albuterol while hospitalized. Symptoms remain controlled. 9. Reflux disease. Patient was continued on omeprazole therapy. Symptoms were controlled while hospitalized. 10. Hypertension - patient's blood pressure remained adequately controlled on her home regimen. 11. Hypokalemia - patient was treated with replacement prior to discharge. For the next 3 days she will increase her potassium chloride to 20 mEq and then return to 10 mEq daily thereafter. 12. Hypomagnesemia - patient was treated with IV magnesium prior to discharge. We will follow this as well. DISCHARGE CONDITION: Good. DISPOSITION: Discharge to home. MEDICATIONS: 1. Ursodiol 300 mg twice daily. 2. Advair 250/50 one puff twice daily. 3. Potassium chloride 20 mEq daily for 3 days, followed by 10 mEq daily thereafter. 4. Lasix 80 mg daily. 5. Omeprazole 40 mg at bedtime. 6. Albuterol inhaler 2 puffs every 4 hours as needed. 7. Augmentin 875/125, 1 tablet twice daily for 7 days. 8. Singulair 10 mg daily. 9. Tylenol 650 mg every 4 hours as needed. 10. Metoprolol ER 25 mg daily. 11. Trazodone 50 mg at bedtime as needed. 12. Losartan 25 mg daily. 13. Zofran 4 mg every 6 hours as needed. 14. Xanax 0.25 mg every 6 hours as needed. FOLLOWUP: Patient is to follow up with me in approximately 1 week. cc: Barney Subramanian MD
--- NOTE | 2019-12-05 10:35 | PROVIDER DOCUMENTATION ---
This chart was entered by Tricia Post Scribe, acting as scribe for Layo Mejia MD. HPI-Abdominal Pain/GI Problem - General Chief Complaint: Abdominal Pain Stated Complaint: CP,NAUSEA Time Seen by Provider: 11/11/19 14:00 Source: patient Allergies/Adverse Reactions: Patient Allergies Allergy/AdvReac Type Severity Reaction Status Date / Time meperidine HCl * Allergy Severe decreased Verified 11/11/19 14:41 [From Demerol] respirations Home Medications: Home Medication List Medication Instructions Recorded Confirmed Last Taken Type Montelukast [Singulair] 10 mg PO DAILY #30 tablet 05/31/16 11/11/19 11/10/19 Rx Acetaminophen [Tylenol] 650 mg PO Q4H PRN PRN tablet 04/21/18 11/11/19 Unknown Rx Metoprolol Succinate E.r. [Toprol 25 mg PO DAILY #30 tab 04/21/18 11/11/19 11/10/19 Rx Xl] Trazodone [Desyrel] 50 mg PO HS PRN PRN tablet 04/21/18 11/11/19 11/10/19 Rx Losartan Potassium 25 mg PO DAILY 11/09/19 11/11/19 11/10/19 History Ondansetron HCl [Zofran] 4 mg PO Q6H PRN #20 tab 11/09/19 11/11/19 Unknown Rx Albuterol Sulfate Inhaler 2 puff INH Q4H PRN PRN inhaler 11/15/19 Unknown Rx [Ventolin Hfa] Alprazolam [Xanax] 0.25 mg PO Q6H PRN PRN #5 tab 11/15/19 Unknown Rx Amoxicillin/Potassium Clav 1 ea PO BID #14 tab 11/15/19 Unknown Rx [Augmentin 875-125 Tablet] Fluticasone/Salmet 250/50 INH 1 puff INH RTBID inhaler 11/15/19 Unknown Rx [Advair 250/50 Diskus] Furosemide [Lasix] 80 mg PO DAILY tab 11/15/19 Unknown Rx Omeprazole [Prilosec] 40 mg PO QHS cap 11/15/19 Unknown Rx Potassium Chloride E.r. [Klor-Con] 10 meq PO DAILY tab 11/15/19 Unknown Rx Ursodiol [Actigall] 300 mg PO BID #60 cap 11/15/19 Unknown Rx - History of Present Illness-ABD Nature of Presenting Problems: Patient is a 89 year old female who presents with RUQ pain. States abdominal pain started this morning at 0830. History of gallstones. Does not report nausea and vomiting. Abdominal Pain Onset Location: reports: RUQ Pain Radiation: reports: no radiation Quality of Pain: reports: aching Severity in ED: reports: mild Onset/Duration: reports: this morning (0830.) Timing: reports: improving Activities at Onset: reports: light activity Associated Symptoms: reports: denies symptoms Bruising or Bleeding Gums?: No Similar Symptoms Previously?: No Recently seen or treated by another doctor?: No Review of Systems - Adult - REVIEW OF SYSTEMS - ADULT Constitutional: reports: no symptoms reported Eyes: reports: no symptoms reported Ears, Nose, Mouth & Throat: reports: no symptoms reported Cardiovascular: reports: no symptoms reported Respiratory: reports: no symptoms reported Gastrointestinal: reports: see HPI, abdominal pain (RUQ) Genitourinary: reports: no symptoms reported Musculoskeletal: reports: no symptoms reported Integumentary: reports: no symptoms reported Neurological: reports: no symptoms reported Psychiatric: reports: no symptoms reported Endocrine: reports: no symptoms reported Hematologic/Lymphatic: reports: no symptoms reported Allergic/Immunologic: reports: no symptoms reported All Other Systems: Reviewed and Negative Past History - Adult - PAST MEDICAL HISTORY-ADULT Review of Records: reports: Nursing Assessment Review, Medications Reviewed, Social history reviewed & non-contributory. Major Childhood Illnesses: reports: denies history Cardiovascular: reports: CHF, HTN Respiratory: reports: asthma Gastrointestinal: reports: GERD, other (hiatal hernia) Obstetrical/Gynecological: reports: denies history Genitourinary: reports: kidney disease Musculoskeletal: reports: denies history Neurological: reports: denies history Endocrine/Immune: reports: denies history Other Conditions: reports: denies history - PRIOR SURGERIES/PROCEDURES Surgical/Procedure History: reports: appendectomy, cholecystectomy, hysterectomy , other (ooferectomy) - IMMUNIZATION STATUS Childhood Immunizations: See Nurse Assessment Flu Vaccine: See Nurse Assessment - FAMILY HISTORY Family History: reviewed, not pertinent - SOCIAL HISTORY Smoking: cigarettes (former) Substance Use: denies Living Situation: family Physical Exam-General - PHYSICAL EXAM-ADULT Initial Vital Signs Reviewed: Yes - CONSTITUTIONAL General Appearance: alert, no apparent distress - HEAD, EARS, NOSE, MOUTH & THROAT HENMT: normocephalic/atraumatic, moist mucous membranes - RESPIRATORY Respiratory: chest non-tender, lungs clear, normal breath sounds - CARDIOVASCULAR Cardiovascular: regular rate, rhythm - GASTROINTESTINAL (ABDOMEN) Abdominal Exam: normal bowel sounds, soft, tenderness (RUQ) - MUSCULOSKELETAL Back Exam: normal inspection, no CVA tenderness, no vertebral tenderness Extremity: non-tender, normal inspection - SKIN Integumentary: normal color, normal turgor, warm/dry - NEUROLOGIC Neurologic: grossly normal - PSYCHIATRIC Psych/Mental Status: normal mood/affect, normal thought content, normal thought process, oriented x 3 Progress - PLAN OF CARE/RESULTS Progress/Plan/Lab Results: Vital Signs - 8 hr 11/11/19 10:51 Temperature 97.9 F Pulse Rate 70 Respiratory Rate 16 Blood Pressure 152/84 O2 Sat by Pulse Oximetry 94 L Laboratory Results - last 24 hr 11/11/19 11/11/19 10:49 10:49 WBC 8.12 RBC 3.45 L Hgb 9.8 L Hct 31.3 L MCV 90.7 MCH 28.4 MCHC 31.3 L RDW Std Deviation 13.8 Plt Count 223 MPV 10.8 H Neut % (Auto) 75.0 Lymph % (Auto) 12.4 L [place] % (Auto) 10.2 H Eos % (Auto) 2.2 Baso % (Auto) 0.2 Neut # (Auto) 6.08 Lymph # (Auto) 1.01 L [place] # (Auto) 0.83 H Eos # (Auto) 0.18 Baso # (Auto) 0.02 Sodium 138 Potassium 3.8 D Chloride 100 Carbon Dioxide 26 Anion Gap 12 BUN 23 H Creatinine 1.7 H Estimated GFR/1.73 m2 28 BUN/Creatinine Ratio 14 Glucose 96 Calculated Osmolality 279 Calcium 9.3 Total Bilirubin 0.84 AST 56 H ALT 23 Alkaline Phosphatase 244 H Total Protein 6.9 Albumin 3.2 L Globulin 3.7 Albumin/Globulin Ratio 0.9 Amylase 50 Lipase 39 Orders Category Date Time Status Saline Loc DIRECTED Care 11/11/19 10:54 Active NPO Diet 11/11/19 10:54 Active CHEST-PORTABLE [RAD] Stat Exams 11/11/19 14:30 Taken AMYLASE [CHEM] Stat Lab 11/11/19 10:49 Completed CBC WITH ELECTRONIC DIFF [HEME] Stat Lab 11/11/19 10:49 Completed COMPREHENSIVE METABOLIC PANEL [CHEM] Stat Lab 11/11/19 10:49 Completed LIPASE [CHEM] Stat Lab 11/11/19 10:49 Completed PRO B-NATRIURETIC PEPTIDE Stat Lab 11/11/19 10:49 Received URINALYSIS W/POSS RFLX CULT [URINALYSIS] Stat Lab 11/11/19 10:54 Uncollected 0.9% Sodium Chloride Inj [Ns] 1,000 ml Med 11/11/19 14:31 Discontinued IV 125 mls/hr 0.9% Sodium Chloride Inj [Ns] 1,000 ml Med 11/11/19 14:39 Active IV 50 mls/hr Morphine Med 11/11/19 14:31 Discontinued 1 mg IV NOW ONE Ondansetron [Zofran] Med 11/11/19 14:31 Discontinued 4 mg IV NOW ONE EKG [EKG] Stat Ther 11/11/19 10:46 Draft Transfer/Admit Order [TRANSFER] Routine Transfer 11/11/19 14:42 Ordered Result Diagrams: 11/15/19 04:56 11/15/19 04:56 - EKG 1 Time of EKG reading by physician:: 10:50 EKG Read and Signed by:: Layo Mejia EKG Interpretation (*Must complete 3 of following elements*): Abnormal Rate: 83 Rhythm: NSR [place]: left QRS: LVH (with QRS widening and repolarization abnormality) FL Interval: normal Comments: cannot rule out septal infarct, age undetermined - CONSULTS/PCP/HOSPITALIST Notification #1 *Consult/PCP/Hospitalist*: Dr. Subramanian Time Discussed: 14:32 Reason/Comments: Dr. Mejia consulted with Dr. Subramanian about patient Departure - Departure Date of Disposition Decision: 11/11/19 Time of Disposition Decision: 14:33 DIAGNOSIS: Abdominal pain Qualifiers: Abdominal location: right upper quadrant Qualified Code(s): R10.11 - Right upper quadrant pain Vomiting Qualifiers: Vomiting type: unspecified Vomiting Intractability: unspecified Nausea presence: with nausea Qualified Code(s): R11.2 - Nausea with vomiting, unspecified Disposition: ADMITTED INPATIENT 09 Certified Medical Emergency: Emergent Condition: Stable - Critical Care Note This patient required my direct & personal management of CC.: No Attestation - Physician/ OLGA Attestation The physician spent face to face time with patient:: Yes Advanced Practice Provider documentation review:: Supervising physician onsite and consulted in the evaluation and care of this patient. The physician did have a face to face encounter with the patient. This chart was documented by the indicated scribe, (Tricia Post Scribe) and accurately reflects the services I performed and decisions made by me, Layo Mejia MD, as attested by the provider's signature.
== END 2019-11-15 11:15 | disposition home or self-care (01) | DRG 445 ==
LOC: 1N 10:17 → ED 10:17
PROVIDERS: ADMIT Internal Medicine; ATTEND Internal Medicine
PROC: EN.ERCP (2019-11-12 11:16)